=== PATIENT | female | born 1955 | race Caucasian/White ===

== ENCOUNTER 2017-03-08 21:46 | Emergency (ER) | payer OTHER ==
[~2017-03-08] VITALS: Ht 160 cm; Wt 88.3 kg
[~2017-03-08 21:46] MED LIST: ACETIC ACID-HC10 ML OT; ARTHROTEC 751 TABLET PO; CLONAZEPAM0.5 MG PO; COUMADIN1 MG PO; HYDROMORPHONE HC4 MG PO; LIDOCAINE700 MG TD; METHOCARBAMOL500 MG PO; MUPIROCIN22 GM TP; PRINIVIL10 MG PO; PROTONIX40 MG PO; SYNTHROID75 MCG PO; TOPAMAX25 MG PO; TRAMADOL HCL50 MG PO; TRICOR48 MG PO; ULTRAM50 MG PO; VAGIFEM10 MCG VG; VITAMIN B12 PO; VITAMIN B6 PO; VITAMIN D1000 INTUN PO; VITAMIN D31000 UNI2 PO; ZESTRIL,PRINIVI10 M1 PO
[2017-03-08 22:22] LABS: HEMATOCRIT 44.4 % (36.0-46.0); MCH 27.5 PG (29.0-34.0); MCHC 33.6 G/DL (30.0-36.0); MCV 82.1 FL (83-99); MEAN PLAT.VOLUME 10.9 uM^3 (9.5-12.4); PLATELET COUNT 364 K/uL (156-360); RBC DIS.WIDTH-CV 12.2 % (11.8-14.6); RBC DIS.WIDTH-SD 36.5 % (39-53); RED BLOOD COUNT 5.41 M/uL (3.80-5.20); WHITE BLOOD COUNT 11.9 K/uL (4.1-10.2)
[2017-03-08 22:48] LABS: ANION GAP 11 MEQ/L (2-14); CHLORIDE 104 MEQ/L (99-109); POTASSIUM 3.3 MEQ/L (3.7-5.4); SAMPLE HEMOLYSIS CHECK 0; SAMPLE ICTERIC CHECK 0; SAMPLE LIPEMIA CHECK 0; SODIUM 139 MEQ/L (136-147); TOTAL BILIRUBIN 0.5 MG/DL (0.0-1.0)
[2017-03-08 22:54] LABS: ALKALINE PHOSPHATASE 75 IU/L (3-129); GFR ESTIMATE (CALCULATED) > 59 mL/min/; GLUCOSE 120 mg/dL (70-99); UREA NITROGEN (BUN) 15 mg/dL (9-23)
[2017-03-08 23:12] LABS: ADD MIUA? YES; BILIRUBIN NEGATIVE; BLOOD NEGATIVE; COLOR YELLOW ((YELLOW)); GLUCOSE (STRIP) NEGATIVE; KETONES 5; LEUKOCYTES NEGATIVE; NITRITE NEGATIVE; PROTEIN (STRIP) 100; SPECIFIC GRAVITY 1.023 (1.000-1.030); UROBILINOGEN 0.2 MG/DL (0.2-1.0)
[2017-03-08 23:40] LABS: BACTERIA 1+ /HPF; CASTS PRESENT /LPF; CRYSTALS NONE SEEN; EPITHELIAL CELLS 1+ /HPF; FINE GRANULAR CASTS 0-5 /LPF; HYALINE CASTS 0-5 /LPF; MUCUS RARE /LPF; RED BLOOD CELLS 0-5 /HPF (0-5); UCUL ADDED? YES
[2017-03-08 23:40] LABS: LIPASE 9 U/L (1.0-51.0)
[2017-03-08 23:41] LABS: COARSE GRANULAR CASTS 0-5 /LPF
[2017-03-09 00:40] LABS: INFLUENZA A VIRAL ANTIGEN NEGATIVE; INFLUENZA B VIRAL ANTIGEN NEGATIVE
[2017-03-09] MEDS ORDERED: NORCO 5/3251 TABLET PO (01:23)
[2017-03-09] MEDS ORDERED: FLAGYL500 MG PO (01:23)
[2017-03-09] MEDS ORDERED: CIPRO500 MG PO (01:23)
[2017-03-09] MEDS ORDERED: ZOFRAN4 MG PO (01:23)
[2017-03-09] MEDS ORDERED: DIFLUCAN150 MG PO (01:31)
[2017-03-09 01:37] VITALS: BP 151/84
== END 2017-03-09 01:37 | disposition home or self-care (01) ==
LOC: EME 21:46
PROVIDERS: Physician Assistant
DX: A09 Infectious gastroenteritis and colitis, unspecified (principal); E87.6 Hypokalemia; E78.5 Hyperlipidemia, unspecified; M79.7 Fibromyalgia; E03.9 Hypothyroidism, unspecified; E53.9 Vitamin B deficiency, unspecified; Z86.718 Personal history of other venous thrombosis and embolism; Z91.040 Latex allergy status; Z88.0 Allergy status to penicillin; Z88.8 Allergy status to other drugs, medicaments and biological substances
CPT/HCPCS: 74177; 80053; 81003; 83690; 85027; 87086; 87502; 99281; 99285; J2405; J3010; J7030

== ENCOUNTER 2017-12-14 06:02 | Day surgery (SDC) | payer OTHER ==
[~2017-12-14] VITALS: Ht 160 cm; Wt 89.4 kg
[~2017-12-14 06:02] MED LIST changes: +CIPRO500 MG PO; +DIFLUCAN150 MG PO; +FENOFIBRATE145 M1 PO; +FLAGYL500 MG PO; +NORCO 5/3251 TABLET PO; +ZOFRAN4 MG PO
[2017-12-14 07:01] VITALS: BP 180/85
[2017-12-14] MEDS ORDERED: HYDROMORPHONE HC4 MG PO (15:18)
[2017-12-14 17:00] VITALS: BP 148/70
== END 2017-12-14 17:49 | disposition home or self-care (01) ==
LOC: SDC 06:02 → NUC 08:00 → SDC 17:49
DX: C50.911 Malignant neoplasm of unspecified site of right female breast (principal); E78.5 Hyperlipidemia, unspecified; I10 Essential (primary) hypertension; E66.09 Other obesity due to excess calories; E03.9 Hypothyroidism, unspecified; M79.7 Fibromyalgia; K21.9 Gastro-esophageal reflux disease without esophagitis; G47.30 Sleep apnea, unspecified; Z88.2 Allergy status to sulfonamides; Z88.0 Allergy status to penicillin; Z88.8 Allergy status to other drugs, medicaments and biological substances; Z88.1 Allergy status to other antibiotic agents; Z91.040 Latex allergy status
CPT/HCPCS: 78195; 78999; 87641; A9541; J0330; J1170; J1885; J2250; J2405; J2765; J3010; S0020